=== PATIENT | female | born 1985 | race African-American/Black ===

== ENCOUNTER 2019-09-06 21:33 | Emergency (ER) | payer OTHER ==
[~2019-09-06] VITALS: Ht 170.2 cm; Wt 90.9 kg
[2019-09-07 00:19] LABS: BASOPHILS % (AUTO) 0.7 % (0.0-2.0); EOSINOPHILS % (AUTO) 0.9 % (1.0-6.0); HEMATOCRIT 34.3 % (36-46); HEMOGLOBIN 11.5 g/dL (12.0-16.0); LYMPHOCYTES # (AUTO) 2.6 K/uL (1.0-4.8); LYMPHOCYTES % (AUTO) 31.4 % (22.0-44.0); MEAN CORPUSCULAR HEMOGLOBIN 29.4 pg (26.0-34.0); MEAN CORPUSCULAR HGB CONC 33.4 G/dL (31.0-37.0); MEAN CORPUSCULAR VOLUME 88 fL (80-100); MONOCYTES # (AUTO) 0.5 K/uL (0.1-1.0); MONOCYTES % (AUTO) 6.7 % (2.0-9.0); NEUTROPHILS # (AUTO) 4.9 K/uL (1.8-7.7); NEUTROPHILS % (AUTO) 60.3 % (40.0-70.0); PLATELET COUNT (AUTO) 300 K/uL (150-450); RED CELL DISTRIBUTION WIDTH 13.8 % (11.5-14.5)
[2019-09-07 00:49] VITALS: BP 138/74
== END 2019-09-07 02:30 | disposition left against medical advice (07) ==
LOC: EMS 21:34
DX: O03.9 Complete or unspecified spontaneous abortion without complication (principal); F17.210 Nicotine dependence, cigarettes, uncomplicated; Z3A.01 Less than 8 weeks gestation of pregnancy
CPT/HCPCS: 76830; 76856; 86850; 86900; 86901

== ENCOUNTER 2025-08-17 06:44 | Emergency (ER) | payer OTHER ==
[~2025-08-17] VITALS: Ht 170.2 cm; Wt 86.4 kg
[2025-08-17 06:49] VITALS: TEMP 98.1
[2025-08-17 07:56] VITALS: BP 119/82; PULSE 99; RESP 16; O2SAT 99
[2025-08-17] MEDS ORDERED: PENI500T2 PO (08:27)
[2025-08-17] MEDS ORDERED: IBUP-1492 PO (08:27)
== END 2025-08-17 09:05 | disposition home or self-care (01) ==
LOC: EMS 06:56
DX: K04.7 Periapical abscess without sinus (principal); F17.210 Nicotine dependence, cigarettes, uncomplicated
CPT/HCPCS: 99283; Z7502